=== PATIENT | male | born 1995 | race Caucasian/White ===

== ENCOUNTER 2020-06-04 00:52 | Emergency (ER) | payer OTHER, SELFPAY ==
[2020-06-04 01:10] VITALS: BP 154/71; PULSE 75; RESP 16; TEMP 35.6; O2SAT 97; BMI 31.0
[2020-06-04 02:55] VITALS: BP 135/88; PULSE 81; RESP 15; O2SAT 98
--- NOTE | 2020-06-04 05:05 | ED.GENADULT ---
HPI - General Adult General Chief complaint: General Medical Stated complaint: Rib pain Time Seen by Provider: 06/04/20 05:02 Source: patient Mode of arrival: ambulatory Limitations: no limitations History of Present Illness HPI narrative: patient comes in complaining of chronic rib pain on the left side. Patient states that his ribs click. Patient denies any trauma. Onset (ago): month(s) Related Data Allergies Allergy/AdvReac Type Severity Reaction Status Date / Time No Known Allergies Allergy Unverified 05/08/20 16:40 Review of Systems Review of Systems: Constitutional : No Weight loss, No Fever, No Chills, No Night Sweats, No Fatigue, No Malaise ENT/Mouth : No Hearing loss, No Ear Pain, No Nasal Congestion, No Sinus Pain, No Hoarseness, No sore throat, No Rhinorrhea, No Swallowing Difficulty Eyes: No Eye Pain, No Swelling, No Redness, No Foreign Body, No Discharge, No Vision Changes Cardiovascular : No Chest Pain, No SOB, No Dyspnea on Exertion, No Orthopnea, No Edema, No Palpitations Respiratory : No Cough, No Sputum, No Wheezing, No Smoke Exposure, No Dyspnea Gastrointestinal : No Nausea, No Vomiting, No Diarrhea, No Constipation, No abdominal Pain, No Hematochezia, No Melena Genitourinary : no irregular bleeding, No Dysuria, No Urinary Frequency, No Hematuria, No Urinary Incontinence, No Urgency, No Flank Pain, No Urinary Flow Changes, No Hesitancy Musculoskeletal : No joint pain, No Myalgias, No Joint Swelling Skin : No Skin Lesions, No rash Neuro : No Weakness, No Numbness, No Paresthesias, No Loss of Consciousness, No Dizziness, No Headache Psych : No Anxiety/Panic, No Depression, No SI/HI/AH/VH, No Social Issues, Heme/Lymph: No Bruising, No Bleeding,No Lymphadenopathy Endocrine : No Polyuria, No Polydipsia, No Temperature Intolerance PMFSH Social History Social History Alcohol intake: unknown Smoking Status: Unknown if ever smoked Use of substances other than those prescribed or required for medical reasons: Unknown Advance Directives: No Advance Directives Information Provided: No Physical Exam Vital Signs: Vital Signs: Vital Signs Temp Pulse Resp BP Pulse Ox 06/04/20 06:00 84 15 132/84 98 06/04/20 02:55 81 15 135/88 98 06/04/20 01:10 96.1 F L 75 16 154/71 H 97 Body Mass Index 31.0 Appearance: Alert. Oriented X3. No acute distress. Eyes: Pupils equal, round and reactive to light. ENT: Pharynx normal. Neck: Normal inspection. Neck supple. No lymph nodes noted. No crepitus CVS: Normal heart rate and rhythm. Pulses normal. Normal S1 and S2 Respiratory: No respiratory distress. Breath sounds normal. No Wheezing. No rales Abdomen: Soft and nontender. No rigidity. No distention. good BS x4 Skin: Skin warm and dry. Normal skin color. Normal skin turgor. Extremities: No lower extremity edema. No lower extremity edema. No Lacerations. No Rash Neuro: Oriented X 3. No motor deficit. No sensory deficit. Moving all extermities. No slurred speech. Medical Decision Making Imaging Data chest x-ray: Radiologist's impression: no acute pathology Discharge Plan Discharge Clinical Impression: Normal exam Patient Disposition: Home, Self-Care Additional Instructions: Please follow-up with your primary care physician tomorrow. If you have any worsening or new symptoms, please return to the emergency room or call 911 Stand Alone Forms: Work/School Release Interventions: ED Discharge Assessment Last Done: 06/04/20 06:46 Discharge Date/Time: 06/04/20 06:54
--- NOTE | 2020-06-04 05:07 | XR_ITS ---
EXAMINATION: XR CHEST CLINICAL INFORMATION: Left frontal rib pain, no trauma COMPARISON: None TECHNIQUE: Frontal view of the chest was obtained. FINDINGS: The lungs are clear with no focal consolidation. No evidence of pneumothorax, pulmonary edema, or pleural effusions. The cardiomediastinal silhouette is unremarkable. No acute osseous findings. IMPRESSION: No acute findings.
[2020-06-04 06:00] VITALS: BP 132/84; PULSE 84; RESP 15; O2SAT 98
== END 2020-06-04 06:54 | disposition home or self-care (01) ==
PROVIDERS: Emergency Provider Emergency Medicine
DX: R07.81 Pleurodynia (principal)
CPT/HCPCS: 71045; 99283; 99284

== ENCOUNTER 2020-12-27 16:51 | Emergency (ER) | payer OTHER, SELFPAY ==
--- NOTE | ~2020-12-27 | XR_ITS ---
EXAMINATION: XR ANKLE, LEFT CLINICAL INFORMATION: Left ankle pain. Status post injury. COMPARISON: None TECHNIQUE: AP, lateral, and mortise views of the left ankle. FINDINGS: The bones and soft tissues are normal. No fracture. Alignment is anatomic. Joint spaces are maintained. No joint effusion. XR/XR ankle LT min 3V IMPRESSION: Normal left ankle.
[2020-12-27 16:59] VITALS: BP 116/73; PULSE 96; RESP 16; TEMP 36.4; O2SAT 99; BMI 31.0
--- NOTE | 2020-12-27 18:37 | ED.LOWEXIN ---
HPI - Extremity Injury (Lower) General Chief Complaint: Extremity Injury, Lower Stated Complaint: Ankle injury Time Seen by Provider: 12/27/20 18:20 Source: patient Mode of arrival: ambulatory History of Present Illness HPI Narrative: 25-year-old male with no significant past medical history presenting to the ED complaining of left ankle pain s/p twisting injury today and last week while playing basketball. Denies direct trauma/crushing, numbness, tingling, weakness. Has been ambulatory with pain MD complaint: ankle injury Related Data Home Medications Medication Instructions Recorded Confirmed No Known Home Meds 08/02/20 08/02/20 Allergies Allergy/AdvReac Type Severity Reaction Status Date / Time No Known Allergies Allergy Verified 08/02/20 20:55 Review of Systems Review of Systems: Constitutional: No Fever, No Chills Cardiovascular: No Chest Pain, No SOB Musculoskeletal: + joint pain, No Myalgias, + Joint Swelling Skin: No Skin Lesions, No rash Neuro: No Weakness, No Numbness, No Paresthesias Yes all other systems are reviewed and are negative REPLACED BY [facility] Past Medical History Attestation statement: The following information was validated with the patient. Medical History (Updated 12/27/20 @ 18:52 by PRISCA Parker) No significant past medical history Surgical History History of appendectomy (~2014) Family History Family History (Updated 08/01/20 @ 16:48 by Darryl Pearce MD) Mother Diabetes mellitus Social History Social History (Updated 08/01/20 @ 16:47 by Darryl Pearce MD) Alcohol intake: current Alcohol intake frequency: holidays/special occasions only Smoking Status: Never smoker Substance Use Type: Marijuana Advance Directives: No Advance Directives Information Provided: Yes Physical Exam Vital Signs: Vital Signs: Last Vital Signs Temp 97.6 F 12/27/20 16:59 Pulse 96 12/27/20 16:59 Resp 16 12/27/20 16:59 BP 116/73 12/27/20 16:59 Pulse Ox 99 12/27/20 16:59 Body Mass Index 31.0 Const: General: cooperative, healthy appearing, no acute distress, alert and awake Orientation/consciousness: patient oriented x3 Limitations: no limitations HENMT: Head: Yes normal to inspection Ears: hearing grossly normal bilaterally General nose exam: Normal external nose present Face and sinus: Yes normal facial exam Eyes: General: appearance normal, both eyes and all related structures EOM: EOMs intact bilaterally Neck: Neck: Yes normal visual inspection Resp: Effort & Inspection: normal respiratory effort Cardio: Rate: regular rate Peripheral pulses: dorsalis pedis present Skin: Rashes: no rashes Wounds: no wounds Neuro: General: patient oriented x3 Gait exam (Neuro): Normal gait present Extrem: Other: Left ankle with mild tenderness to palpation and slight swelling greater to posterior aspect. no ecchymosis or appreciable deformity. ROM limited secondary to pain. NV intact. General: Yes normal to inspection Course Course Course Narrative: XR ankle LT min 3V IMPRESSION: Normal left ankle. >> patient placed in Aircast to follow-up with PCP MDM - Extremity Injury (Lower) MDM Narrative Medical decision making narrative: On exam VS, NAD/well-appearing, physical exam as above. Concern for ankle sprain/strain versus fracture Plan: X-rays Discharge Plan Discharge Clinical Impression: Ankle sprain and strain Patient Disposition: Home, Self-Care Instructions: Ankle Sprain (ED) Additional Instructions: X-ray of ankle was normal Wear Aircast at home as needed for stability/comfort Take Tylenol /Motrin for pain/swelling Ice and elevate your ankle Bear weight as tolerated, follow up with your doctor Prescriptions: No Action No Known Home Meds RF: 0 Referrals: Darryl Pearce MD [Primary Care Provider] - 1 week Stand Alone Forms: Work/School Release
== END 2020-12-27 19:23 | disposition home or self-care (01) ==
PROVIDERS: Emergency Provider Emergency Medicine; PCP Internal Medicine
DX: S93.402A Sprain of unspecified ligament of left ankle, initial encounter (principal); S96.912A Strain of unspecified muscle and tendon at ankle and foot level, left foot, initial encounter; X50.1XXA Overexertion from prolonged static or awkward postures, initial encounter; Y93.67 Activity, basketball; Y92.310 Basketball court as the place of occurrence of the external cause; Y99.9 Unspecified external cause status
CPT/HCPCS: 73610; 99283

== ENCOUNTER 2023-06-24 07:59 | Outpatient (AMB) | payer OTHER, SELFPAY ==
[2023-06-24 08:05] VITALS: BP 118/68; PULSE 77; O2SAT 98; BMI 32.8
--- NOTE | 2023-06-24 08:05 | MHC.PC.OV ---
Vital Signs 06/24/23 08:05 Height 5 ft 9 in Weight 222 lb BMI 32.8 BP 118/68 Blood Pressure Location Lt brachial Position Sitting Pulse 77 Pulse Source Pulse Oximeter Pulse Oximetry (%) 98 Oxygen Delivery Method Room Air Intake Visit Reasons: ANNUAL PHYSICAL Allergies No Known Allergies Allergy (Verified 06/24/23 08:17) Medication List - Last Reconciled 06/24/23 by SANDRA Crawley No Known Home Meds Tobacco use date assessed: 06/24/23 Dental Screening Dental Screen Date: 06/24/23 Did you have a dental visit in the last 12 months?: No Did you have a dental problem in the last 6 months where you did not have access to dental care?: No Was dental information given to patient?: Patient has dentist HPI HPI Comments History of Present Illness Details 27-year-old female past medical history significant for insomnia and obesity. Patient Dr. Pearce last seen 2 years ago patient presents today for physical exam. Denies any acute concerns. Eye exam: Early 2022 [facility] Medical History Insomnia Obesity (BMI 30-39.9) Surgical History History of appendectomy (~2014) Family History (Updated 06/24/23 @ 08:18 by SANDRA Crawley) Mother Diabetes mellitus Father No problems noted. Social History (Updated 06/24/23 @ 08:19 by SANDRA Crawley) Housing: Apartment Alcohol intake: current Alcohol intake frequency: a few times a month Patient Tobacco Use Status: Never used Tobacco e-Cigarette/Vaping Use: Never Used Second Hand Smoke Exposure: Yes Substance Use Type: Marijuana service: No Current occupational status: employed Cognitive needs: No Hearing needs: No Vision needs: Yes Questionnaire PHQ-9 Over the last 2 weeks, how often have you been bothered by any of the following problems? 1. Little interest or pleasure in doing things: not at all 2. Feeling down, depressed, or hopeless: not at all 3. Trouble falling or staying asleep, or sleeping too much: not at all 4. Feeling tired or having little energy: not at all 5. Poor appetite or overeating: not at all 6. Feeling bad about yourself - or that you are a failure or have let yourself or your family down: not at all 7. Trouble concentrating on things, such as reading the newspaper or watching television: not at all 8. Moving or speaking so slowly that other people could have noticed. Or the opposite - being so fidgety or restless that you have been moving around a lot more than usual: not at all 9. Thoughts that you would be better off or of hurting yourself in some way: not at all Total score: 0 Depression Screening Interpretation: Negative Depression Screening Done: Yes 59740 - PHQ-9 Billing: Yes Source: Developed by Drs. Ruben Wood, Jane Chairez, Remi Carmen and colleagues, with an educational fabienne from [employer]. Thrive Questionnaire Date Thrive assessed: 06/24/23 I am a: Patient What is your living situation today?: I have a steady place to live Within the past 12 months, did the food you bought not last and you didn't have the money to get more?: Never true Within the past 12 months, did you worry whether your food would run out before you got money to buy more?: Never true Do you have trouble paying for medicines?: No Do you have trouble getting transportation to medical appointments?: No Do you have trouble paying your heating and electricity bill?: No Do you have trouble taking care of your child, family member or friend?: No Do you have trouble with day-to-day activities such as bathing, preparing meals, shopping, managing finances, etc.?: No Are you currently unemployed and looking for a job?: No Are you interested in more education?: No Currently or been in a relationship where the following occur: no concerns reported AUDIT C Alcohol Use Questionnaire (AUDIT-C) 1. How often do you have a drink containing alcohol?: Monthly or less 2. How many drinks containing alcohol do you have on a typical day when you are drinking?: 1 or 2 3. How often do you have six or more drinks on one occasion?: Never Total Score: 1 Score Reviewed/Action Taken: Yes KLARISSA-7 AMB Questionnaire KLARISSA-7 Date KLARISSA - 7 assessed: 11/03/23 Feeling nervous, anxious, or on edge: 0 = Not at all Not being able to stop or control worryin = Not at all Worrying too much about different things: 0 = Not at all Trouble relaxin = Not at all Being so restless that it is hard to sit still: 0 = Not at all Becoming easily annoyed or irritable: 0 = Not at all Feeling afraid as if something awful might happen: 0 = Not at all Total KLARISSA-7 score (0-4 normal; 5-9 mild; 10-14 moderate; 15-21 severe): 0 Source: Developed by Drs. Ruben Wood, Jane Chairez, Remi Carmen and colleagues, with an educational fabienne from [employer]. KLARISSA-7 Assessment Billing KLARISSA-7 Assessment Tool: KLARISSA-7 Assessment 55670 Review of Systems Const Denies chills, Denies fatigue, Denies fever(s) and Denies poor appetite Eyes Denies no additional complaints ENT Reports Normal hearing present Card Denies chest pain, Denies syncope, Denies rapid heart rate and Denies dyspnea Resp Denies cough and Denies dyspnea GI Denies change in stool character, Denies constipation, Denies diarrhea, Denies nausea and Denies vomiting Denies dysuria, Denies urinary frequency and Denies urinary urgency Neuro Reports Normal hearing present, Denies confusion and Denies syncope Psych Denies confusion Endo Denies fatigue Physical exam (Primary Care) Vital Signs: Last Vital Signs Pulse 77 06/24/23 08:05 BP 118/68 06/24/23 08:05 Pulse Ox 98 06/24/23 08:05 Oxygen Delivery Method Room Air 06/24/23 08:05 BMI result Body Mass Index 32.8 Tobacco/Smoking Status: Tobacco use Status Tobacco use date assessed 06/24/23 06/24/23 08:12 Patient Tobacco Use Status Never used Tobacco 06/24/23 08:12 e-Cigarette/Vaping Use Never Used 06/24/23 08:12 PHQ-9: PHQ-9 Score PHQ-9: Total score 0 06/24/23 08:12 Depression Screening Interpretation: Negative Thrive Assessment: Date of Thrive Assessment Date Thrive assessed 06/24/23 06/24/23 08:12 Currently or been in a relationship where the following occur: no concerns reported Const General: No confusion Orientation/consciousness: No confusion HENPR Head: Yes normocephalic and Yes atraumatic Ears: external ears normal and TM's normal bilaterally General nose exam: Normal external nose present and Normal nasal mucous membranes and turbinates present Face and sinus: Yes normal facial exam and Yes sinuses nontender Mouth: moist mucous membranes Throat: Yes tonsils normal Eyes Conjunctivae: conjunctivae normal Sclerae: sclerae normal Pupils: Equal, round and reactive pupils present and Pupils normal by confrontation EOM: EOMs intact bilaterally Direct Ophthalmoscopy: normal light reflex Neck Neck: Yes no lymphadenopathy and Yes supple Thyroid: Thyroid normal Chest Chest palpation & inspection: normal inspection of the chest Resp Effort & Inspection: normal respiratory effort Auscultation: clear to auscultation bilaterally, no crackles, no rhonchi and no wheezes Cardio Rate: regular rate Rhythm: regular rhythm Peripheral pulses: radial pulses present and dorsalis pedis present GI Inspection: Yes normal to inspection Palpation (GI): Soft to palpation, nontender and No hepatosplenomegaly present Auscultation: normoactive bowel sounds Skin General skin exam: no rashes or lesions noted Neuro General: No confusion Cranial nerves: Yes Equal, round and reactive pupils present and Yes Normal hearing present Cognition (Neuro): normal cognition Gait exam (Neuro): Normal gait present Motor exam (neuro): 5/5 motor strength present throughout Deep tendon reflexes (DTR's): Right brachioradialis reflex intensity grade: 2+, Left brachioradialis reflex intensity grade: 2+, Right patellar reflex intensity grade: 2+ and Left patellar reflex intensity grade: 2+ Extrem General: No edema Assessment and Plan Assessment & Plan (1) Annual physical exam: Code(s): Z00.00 - Encounter for general adult medical examination without abnormal findings Plan: Follow-up in 1 year. (2) Obesity (BMI 30-39.9): Code(s): E66.9 - Obesity, unspecified Plan: Discussed diet and exercise to reduce BMI. Coding Level of Care Code Est Pt Prev Care 18-39y(09106) Diagnoses Annual physical exam Z00.00 Obesity (BMI 30-39.9) E66.9 Additional Codes KLARISSA-7 Assessment Billing - KLARISSA-7 Assessment Tool: KLARISSA-7 Assessment [id number] ([id number])
== END 2023-06-24 08:25 | disposition home or self-care (01) ==
PROVIDERS: PCP Internal Medicine; Visit Provider Nurse Practitioner Family
DX: Z00.00 Encounter for general adult medical examination without abnormal findings (principal); E66.9 Obesity, unspecified; Z68.32 Body mass index [BMI] 32.0-32.9, adult
CPT/HCPCS: 99395